=== PATIENT | female | born 1955 | race Caucasian/White ===

== ENCOUNTER 2019-07-15 12:25 | Outpatient (CLI) | payer BC, SELFPAY ==
--- NOTE | 2019-07-15 12:51 | ECHO_ITS ---
Patient Info Name: Vaishali Pittman Age: 63 years : 1955 Gender: Female Ht: 62 in Wt: 130 lbs BSA: 1.62 m2 HR: 77 bpm BP: 120 / 71 mmHg Heart Rhythm: Sinus Rhythm Exam Date: 07/15/2019 12:55 PM Exam Location: [facility] Patient Status: Outpatient Admit Date: 07/15/2019 Staff Ordering Physician: Blake Rivera PA-C Attending Provider: Blake Rivera PA-C Referring Physician: Nicole STEELE; Exam Type: CA echo doppler color flow Study Info Indications R01.1 - Cardiac murmur, unspecified Complete two-dimensional, color flow and Doppler transthoracic echocardiogram is performed. Summary 1. Left ventricular chamber dimension is normal. 2. Left ventricular systolic function is normal, estimated at 65-70%. 3. The left ventricular diastolic function is grade II diastolic dysfunction. 4. E/e' 19 is elevated. 5. There is moderate aortic valve sclerosis. 6. There is mild aortic valve stenosis with a peak velocity of 176 cm/s, mean gradient of 7 mmHg, and aortic valve area of 1.5 cm2. 7. The mitral valve has mildly calcified annulus. 8. There is trace tricuspid valve regurgitation. 9. No pulmonary hypertension, estimated pulmonary arterial systolic pressure is 25 mmHg. Left Ventricle E/e' 19 is elevated. Left ventricular chamber dimension is normal. Left ventricular systolic function is normal, estimated at 65-70%. The left ventricular diastolic function is grade II diastolic dysfunction. Right Ventricle Right ventricular chamber dimension is normal. Right ventricular systolic function is normal. Left Atria Left atrial chamber dimension is normal. Right Atria Right atrial chamber dimension is normal. Aortic Valve The aortic valve is probable trileaflet. There is moderate aortic valve sclerosis. There is mild aortic valve stenosis with a peak velocity of 176 cm/s, mean gradient of 7 mmHg, and aortic valve area of 1.5 cm2. There is no aortic valve regurgitation. Pulmonic Valve There is no pulmonic regurgitation. Mitral Valve The mitral valve has mildly calcified annulus. There is no mitral valve stenosis. There is no mitral valve regurgitation. Tricuspid Valve There is trace tricuspid valve regurgitation. No pulmonary hypertension, estimated pulmonary arterial systolic pressure is 25 mmHg. Pericardium/Pleural There is no pericardial effusion. Inferior Vena Cava Normal inferior vena cava with >50% collapse upon inspiration consistent with normal right atrial pressure, 5 mmHg. Aorta The aortic root size at the sinus of Valsalva is normal. Left Ventricular Outflow Tract Name Value Normal LVOT 2D LVOT Diameter 1.8 cm LVOT Doppler LVOT Peak Gradient 4 mmHg LVOT Mean Gradient 2 mmHg LVOT VTI 23 cm LVOT VTI/AV VTI Ratio 0.6 LVOT Stroke Volume 59 ml LVOT CO 9.8 l/min LVOT CI 6.1 l/min/m2 Pulmonic Valve
== END 2019-07-15 12:26 | disposition home or self-care (01) ==
PROVIDERS: PCP Internal Medicine; Visit Provider Physician Assistant
DX: R01.1 Cardiac murmur, unspecified (principal); R93.1 Abnormal findings on diagnostic imaging of heart and coronary circulation; I70.0 Atherosclerosis of aorta; I35.0 Nonrheumatic aortic (valve) stenosis
CPT/HCPCS: 93306

== ENCOUNTER 2021-07-04 09:17 | Emergency (ER) | payer BC, SELFPAY ==
--- NOTE | ~2021-07-04 | CT_ITS ---
EXAMINATION: CT BRAIN W/O DATE: 07/04/2021 09:45 INDICATION: Status post fall. Trauma to the back of head. TECHNIQUE: Computed tomography (CT) of the head was performed without intravenous contrast. The dose- length product was 605.33 mGy-cm. Automated exposure control and iterative reconstruction technique were employed. COMPARISON: MRI dated 04/07/2014 FINDINGS: Normal brain parenchymal volume for age. Normal bashir-white differentiation. No acute intrac ranial hemorrhage, infarction, mass or mass effect. No ventriculomegaly or midline shift. Midline sagittal images demonstrate a normal corpus callosum, c raniovertebral junction and sella turcica. Basilar cisterns are patent. Paranasal sinuses and mastoids are pneumatized. No depressed skull fractures. IMPRESSION: 1. No acute intracranial abnormality. Reviewed, dictated and finalized at location A. CAL GOODS DRILL OPERATOR
--- NOTE | ~2021-07-04 | XR_ITS ---
XR forearm RT 2V 07/04/2021 09:50 INDICATION: Right forearm PROCEDURE: 2 views right forearm COMPARISON: No prior studies for comparison FINDINGS: Fracture, dislocation or subluxation is not identified. The soft tissues appear within norm al limits. No foreign bodies are identified. IMPRESSION: 1: NO ACUTE BONE OR JOINT ABNORMALITY IDENTIFIED. Reviewed, dictated and finalized at location A. OMER CARE COORDINATOR
--- NOTE | ~2021-07-04 | XR_ITS ---
XR hand RT min 3V, XR wrist RT min 3V 07/04/2021 09:50 Indication: Right wrist and hand pain after fall Procedure: 3 views right hand and 4 views right wrist Comparison: No prior studies for comparison. Findings: Osteopenia. Mild polyarticular osteoarthritis. No acute fracture, subluxation or dislocatio n. No solid focal soft tissue abnormality. No foreign bodies. Impression: 1: No acute fracture. Reviewed, dictated and finalized at location A. ST BOTANY INSTRUCTOR Impression: 1: No acute fracture. Impression: 1: No acute fracture.
[2021-07-04 09:21] VITALS: BP 123/100; PULSE 89; RESP 16; TEMP 36.6; O2SAT 98
--- NOTE | 2021-07-04 09:31 | ED.FALL ---
HPI - Fall General Chief Complaint: Fall <Essie Rae APRN - Last Filed: 07/04/21 18:58> Stated Complaint: fall, wrist injury <Essie Rae APRN - Last Filed: 07/04/21 18:58> Time Seen by Provider: 07/04/21 09:21 <Essie Rae APRN - Last Filed: 07/04/21 18:58> Source: patient <Essie Rae APRN - Last Filed: 07/04/21 18:58> History of Present Illness HPI Narrative: 65 year old female who is right handed presents today with complaints of right arm/wrist pain that started last night when she fell. Patient states she slipped on the ice hit her head but denies LOC. Patient was alert and oriented after the fall and didn't notice any other injuries until a couple hours later. Patient noted the right wrist was with swelling and pain. Patient hand an old brace which she applied and took Tylenol with little relief. <Essie Rae APRN - Last Filed: 07/04/21 18:58> Related Data Home Medications: Home Medications Medication Instructions Recorded Confirmed aspirin 81 mg tablet,delayed 81 mg PO DAILY 06/27/19 01/19/21 release krill 1 cap PO DAILY 06/27/19 01/19/21 vjn-jo-0-bfv-png-evxqovlqhpnhr 300 mg-90 mg-24 mg-50 mg capsule melatonin 5 mg capsule mg PO .hs cap 06/27/19 01/19/21 metformin 500 mg tablet 1,000 mg PO DAILY tablet 06/27/19 01/19/21 multivit with 1 tablet PO DAILY 06/27/19 01/19/21 botjbwrl-vydp-PJ-lutein 8 mg iron-400 mcg-300 mcg tablet rosuvastatin 20 mg tablet 20 mg PO DAILY 06/27/19 01/19/21 empagliflozin 25 mg tablet 25 mg PO QAM tablet 06/28/19 01/19/21 cholecalciferol (vitamin D3) 50 50 mcg PO DAILY 01/15/20 01/19/21 mcg (2,000 unit) capsule magnesium citrate 100 mg tablet 100 mg PO DAILY 01/19/21 01/19/21 semaglutide 1 mg SUB-Q WEEKLY ml 01/19/21 01/19/21 <Essie Rae APRN - Last Filed: 07/04/21 18:58> Allergies/Adverse Reactions: Allergies Allergy/AdvReac Type Severity Reaction Status Date / Time Sulfa (Sulfonamide Allergy Severe Anaphylaxis Verified 07/04/21 09:30 Antibiotics) sulfamethizole Allergy Severe Anaphylaxis Verified 07/04/21 09:30 sulfanilamide Allergy Severe Anaphylaxis Verified 07/04/21 09:30 trimethoprim Allergy Severe Anaphylaxis Verified 07/04/21 09:30 <Essie Rae MEDICAL RECORDS CODER - Last Filed: 07/04/21 18:58> Review of Systems Constitutional: Constitutional: Reports as per HPI and Reports no additional constitutional complaints <Essie Rae MEDICAL RECORDS CODER - Last Filed: 07/04/21 18:58> Eyes: Eyes: Reports no additional eye complaints <Essie Rae MEDICAL RECORDS CODER - Last Filed: 07/04/21 18:58> ENT: Reports system reviewed and no additional complaints, except as documented <Essie Rae APRN - Last Filed: 07/04/21 18:58> Cardiovascular: Cardiovascular: Reports no additional cardiovascular complaints <Essie Rae MEDICAL RECORDS CODER - Last Filed: 07/04/21 18:58> Respiratory: Respiratory: Reports no additional respiratory complaints <Essie Rae MEDICAL RECORDS CODER - Last Filed: 07/04/21 18:58> Musculoskeletal: Musculoskeletal: Reports as per HPI <Essie Rae MEDICAL RECORDS CODER - Last Filed: 07/04/21 18:58> Neurologic: Reports as per HPI, Denies Abnormal speech present, Denies abnormal gait, Denies confusion, Denies dizziness, Denies syncope, Denies headache(s), Denies focal weakness and Reports numbness (numbness noted to right palm near 5th digit. ) <Essie Rae APRN - Last Filed: 07/04/21 18:58> [facility] Past Medical History Medical History: Medical History (Updated 07/04/21 @ 10:32 by Essie Rae APRN) Anxiety Coccygeal pain Heart murmur Hyperlipidemia Hypertension Type 2 diabetes mellitus without complications <Essie Rae APRN - Last Filed: 07/04/21 18:58> Family History Family History: Family History Father Family history of diabetes mellitus in first degree relative Patient's father is <Essie Rae APRN - Last Filed:
[2021-07-04 09:53] VITALS: BP 119/59; PULSE 81; RESP 16; O2SAT 98
[2021-07-04] MEDS: HYDROcodone/acetaminophen (*CRX) 5-325 MG TABLET 1 TAB PO (10:37)
== END 2021-07-04 10:47 | disposition home or self-care (01) ==
PROVIDERS: Emergency Provider Nurse Practitioner Family; PCP Internal Medicine
DX: S60.211A Contusion of right wrist, initial encounter (principal); E78.5 Hyperlipidemia, unspecified; I10 Essential (primary) hypertension; E11.9 Type 2 diabetes mellitus without complications; Z79.84 Long term (current) use of oral hypoglycemic drugs; Z79.82 Long term (current) use of aspirin; W00.0XXA Fall on same level due to ice and snow, initial encounter
CPT/HCPCS: 70450; 73090; 73110; 73130; 99284; A9270

== ENCOUNTER 2022-03-09 11:43 | Outpatient (CLI) | payer BC, SELFPAY ==
[2022-03-09 12:09] LABS: Appearance Urine Cloudy (Clear); Bilirubin Urine Negative (Negative); Blood Urine 2+ (Negative); Color Urine Yellow (Yellow); Glucose Urine UA 2+ mg/dL (Negative); Ketones Urine Negative (Negative); Leukocyte Esterase Ur 1+ LEU/UL (Negative); Nitrate Urine Negative (Negative); Protein Urine 1+ mg/dL (Negative); Specific Grav Ur 1.015 (1.001-1.035); Urobilinogen Urine 0.2 mg/dL (<2.0)
[2022-03-09 12:21] LABS: Add Urine Microscopic? YES; RBC Urine >75 /hpf (0-2); WBC Urine >75 /hpf
== END 2022-03-09 11:44 | disposition home or self-care (01) ==
LOC: ANHLAB 11:45
PROVIDERS: PCP Internal Medicine; Visit Provider Internal Medicine
DX: R30.0 Dysuria (principal)
CPT/HCPCS: 81001; 87077; 87086; 87186

== ENCOUNTER 2022-10-14 02:01 | Day surgery (SDC) | payer BC, SELFPAY ==
[2022-09-29 08:47] VITALS: BMI 23.5
--- NOTE | 2022-10-13 20:28 | PM.HPGS ---
History of Present Illness History of Present Illness Consent: Risks, benefits, and alternatives have been discussed and questions answered. Patient agrees to proceed with procedure. Chief complaint: neoplasm screening Narrative: Vaishali Pittman is a 66 year old female who is referred for colon cancer screening. Review of Systems Review of Systems: All systems reviewed & are unremarkable except as noted in HPI and below PMFSH Past Medical History Medical History Anxiety Coccygeal pain Heart murmur Hyperlipidemia Hypertension Type 2 diabetes mellitus without complications Family History Family History Father Family history of diabetes mellitus in first degree relative Patient's father is Social History Social History Smoking status: Never smoker Second hand tobacco smoke exposure: No Alcohol intake: current Alcohol use details: rarely Substance use type: does not use Lack of Transportation: No Lack of Food: Never True Current Housing: I Have Housing Concerned About Future Housing: No Difficulty Paying Gas/Electric Bills: No Difficulty Paying for Meds: No Currently Unemployed: No Education: Trade/Vocational Certificate Difficulty w/ Childcare or Family Care: No Living arrangements: with family Spiritual care concerns: No Meds Home Medications and Allergies Home Medications Medication Instructions Recorded Confirmed Type aspirin 81 mg tablet,delayed 81 mg PO DAILY 06/27/19 09/29/22 History release (Adult Low Dose Aspirin) melatonin 5 mg capsule 5 mg PO .hs 06/27/19 09/29/22 History metformin 500 mg tablet 1,000 mg PO DAILY 06/27/19 09/29/22 History multivit with 1 tablet PO DAILY 06/27/19 09/29/22 History xvlkeozg-eysd-KO-lutein 8 mg iron-400 mcg-300 mcg tablet (Centrum Silver Women) empagliflozin 25 mg tablet 25 mg PO QAM 06/28/19 09/29/22 History (Jardiance) cholecalciferol (vitamin D3) 50 50 mcg PO DAILY 01/15/20 09/29/22 History mcg (2,000 unit) capsule hydrochlorothiazide 25 mg tablet 25 mg PO DAILY #90 tabs 01/24/22 09/29/22 Rx losartan 100 mg tablet 100 mg PO DAILY #90 tabs 01/24/22 09/29/22 Rx icosapent ethyl 1 gram capsule 2 g PO BID 02/04/22 09/29/22 History (Vascepa) magnesium glycinate 100 mg tablet 100 mg PO DAILY 02/04/22 09/29/22 History fluconazole 150 mg tablet 150 mg PO DAILY PRN other 09/29/22 09/29/22 History rosuvastatin 40 mg tablet 40 mg PO DAILY 09/29/22 09/29/22 History semaglutide 2 mg/dose (8 mg/3 mL) 2 mg subcut WEEKLY 09/29/22 09/29/22 History subcutaneous pen injector (Ozempic) vitamin E 400 unit tablet 400 unit PO DAILY 09/29/22 09/29/22 History Allergies Allergy/AdvReac Type Severity Reaction Status Date / Time Sulfa (Sulfonamide Allergy Severe Anaphylaxis Verified 09/29/22 08:50 Antibiotics) sulfamethizole Allergy Severe Anaphylaxis Verified 09/29/22 08:50 sulfanilamide Allergy Severe Anaphylaxis Verified 09/29/22 08:50 trimethoprim Allergy Severe Anaphylaxis Verified 09/29/22 08:50 Exam Const: General: alert Orientation/consciousness: patient oriented x3 Resp: Auscultation: clear to auscultation bilaterally Cardio: Rhythm: regular rhythm GI: GI Palp: Yes Soft to palpation and No Tenderness to palpation present (GI) Neuro: General: patient oriented x3 Assessment and Plan Assessment and plan (1) Colon cancer screening: Code(s): Z12.11 - Encounter for screening for malignant neoplasm of colon Status: Acute Assessment and Plan: Colonoscopy with possible biopsy or polypectomy or cautery or injection of substances.
[2022-10-14 09:53] VITALS: BP 121/54; PULSE 78; RESP 18; TEMP 36.3; O2SAT 100; BMI 23.2
[2022-10-14 10:14] LABS: Glucose Point of Care 113 mg/dl (65-105)
[2022-10-14] MEDS: LACTATED RINGERS 1,000 ML 150 ML IV CONT (10:26)
[2022-10-14 12:00] VITALS: BP 88/33; PULSE 88; RESP 18; O2SAT 100
[2022-10-14 12:10] VITALS: BP 117/56; PULSE 83; RESP 18; O2SAT 99
[2022-10-14 12:20] VITALS: BP 114/52; PULSE 77; RESP 18; O2SAT 99
--- NOTE | 2022-10-14 13:25 | WPDANESEPPF ---
Anes - Initial Pre Proc Eval Procedure: Operation Date: 10/14/22 11:30 Proposed Procedures p Screening Colonoscopy - Ron Lamb MD Date/Time: 10/14/22 13:25 Surgeon: Ron Lamb MD Pre Op Diagnosis: neoplasm screening Patient Data Age: 66 Gender: F Height: 1.57 m Weight: 57.7 kg Last Vital Signs Temp 97.4 F L 10/14/22 09:53 Pulse 77 10/14/22 12:20 Resp 18 10/14/22 12:20 BP 114/52 L 10/14/22 12:20 Pulse Ox 99 10/14/22 12:20 O2 Del Method Room Air 10/14/22 12:20 Allergies Allergy/AdvReac Type Severity Reaction Status Date / Time Sulfa (Sulfonamide Allergy Severe Anaphylaxis Verified 09/29/22 08:50 Antibiotics) sulfamethizole Allergy Severe Anaphylaxis Verified 09/29/22 08:50 sulfanilamide Allergy Severe Anaphylaxis Verified 09/29/22 08:50 trimethoprim Allergy Severe Anaphylaxis Verified 09/29/22 08:50 Home Medications Medication Instructions Recorded Confirmed Type aspirin 81 mg tablet,delayed 81 mg PO DAILY 06/27/19 09/29/22 History release (Adult Low Dose Aspirin) melatonin 5 mg capsule 5 mg PO .hs 06/27/19 09/29/22 History metformin 500 mg tablet 1,000 mg PO DAILY 06/27/19 09/29/22 History multivit with 1 tablet PO DAILY 06/27/19 09/29/22 History arnoofzp-myxw-JF-lutein 8 mg iron-400 mcg-300 mcg tablet (Centrum Silver Women) empagliflozin 25 mg tablet 25 mg PO QAM 06/28/19 09/29/22 History (Jardiance) cholecalciferol (vitamin D3) 50 50 mcg PO DAILY 01/15/20 09/29/22 History mcg (2,000 unit) capsule hydrochlorothiazide 25 mg tablet 25 mg PO DAILY #90 tabs 01/24/22 09/29/22 Rx losartan 100 mg tablet 100 mg PO DAILY #90 tabs 01/24/22 09/29/22 Rx icosapent ethyl 1 gram capsule 2 g PO BID 02/04/22 09/29/22 History (Vascepa) magnesium glycinate 100 mg tablet 100 mg PO DAILY 02/04/22 09/29/22 History fluconazole 150 mg tablet 150 mg PO DAILY PRN other 09/29/22 09/29/22 History rosuvastatin 40 mg tablet 40 mg PO DAILY 09/29/22 09/29/22 History semaglutide 2 mg/dose (8 mg/3 mL) 2 mg subcut WEEKLY 09/29/22 09/29/22 History subcutaneous pen injector (Ozempic) vitamin E 400 unit tablet 400 unit PO DAILY 09/29/22 09/29/22 History Laboratory Tests 10/14/22 10:04 POC Capillary Glucose 113 H mg/dl (65-105) Patient hx anesthesia problems: none Family hx anesthesia problems: none Results Review: All pre-operative results and documents have been reviewed as part of the pre-operative evaluation. [facility] Past Medical History Medical History Anxiety Coccygeal pain Heart murmur Hyperlipidemia Hypertension Type 2 diabetes mellitus without complications Family History Family History Father Family history of diabetes mellitus in first degree relative Patient's father is Social History Social History Smoking status: Never smoker Second hand tobacco smoke exposure: No Alcohol intake: current Alcohol use details: rarely Substance use type: does not use Lack of Transportation: No Lack of Food: Never True Current Housing: I Have Housing Concerned About Future Housing: No Difficulty Paying Gas/Electric Bills: No Difficulty Paying for Meds: No Currently Unemployed: No Education: Trade/Vocational Certificate Difficulty w/ Childcare or Family Care: No Living arrangements: with family Spiritual care concerns: No Anes - Eval Final PreProcedure Day of Procedure 10/14/22 13:25 Patient weight: normal Heart: regular rate and rhythm Lungs: clear to auscultation Airway: Mallampati scale class II Neurological: alert and oriented Last oral intake: >/= 8 hours ASA classification: III Emergent: no Anesthetic plan: proceed Anesthesia type and monitoring: general GIVS and standard monitoring Results Review: All pre-operativ
== END 2022-10-14 12:33 | disposition home or self-care (01) ==
PROVIDERS: PCP Internal Medicine; Visit Provider Internal Medicine Gastroenterology
PROC: 0DJD8ZZ Inspection of Lower Intestinal Tract, Via Natural or Artificial Opening Endoscopic (ICD-10-PCS; CPT 45378; principal; 2022-10-14 11:30)
DX: Z12.11 Encounter for screening for malignant neoplasm of colon (principal); I10 Essential (primary) hypertension; E78.5 Hyperlipidemia, unspecified; E11.9 Type 2 diabetes mellitus without complications; F41.9 Anxiety disorder, unspecified; Z79.82 Long term (current) use of aspirin; Z79.84 Long term (current) use of oral hypoglycemic drugs; Z79.899 Other long term (current) drug therapy
CPT/HCPCS: 45378; 82948; J2704; J7120

== ENCOUNTER → 2023-07-18 11:30 | Outpatient (CLI) | payer MEDICARE, OTHER, SELFPAY ==
--- NOTE | ~2023-07-18 | XR_ITS ---
Bilateral Hands Technique: Bilateral PA, oblique, and lateral views, and ball-catcher's view, were obtained. Clinical History: Arthritis Findings: No acute fracture or dislocation is seen. Osseous alignment is anatomic. Joint spaces are p reserved. Soft tissues are unremarkable. Impression: Unremarkable bilateral hand radiographs. Reviewed, dictated and finalized at location . TAL LIBRARIAN Impression: Unremarkable bilateral hand radiographs.
== END ==
PROVIDERS: PCP Plastic Surgery; Visit Provider Physician Assistant
DX: M79.89 Other specified soft tissue disorders (principal)
CPT/HCPCS: 73130

== ENCOUNTER 2023-11-28 09:22 | Outpatient (RCR) | payer MEDICARE, OTHER, SELFPAY ==
[2023-11-28 10:40] VITALS: BMI 27.3
[2023-11-28 15:16] VITALS: BMI 27.3
== END 2024-02-12 10:34 | disposition home or self-care (01) ==
LOC: ANHDMC 09:22
PROVIDERS: PCP Nurse Practitioner Family; Visit Provider Internal Medicine
DX: E11.9 Type 2 diabetes mellitus without complications (principal); Z71.3 Dietary counseling and surveillance
CPT/HCPCS: 97802

== ENCOUNTER → 2024-01-23 12:10 | Outpatient (REF) | payer MEDICARE, OTHER, SELFPAY | LOC: ANHLAB 12:10 | PROVIDERS: PCP Nurse Practitioner Family; Visit Provider Plastic Surgery | DX: D48.5 Neoplasm of uncertain behavior of skin (principal) | CPT/HCPCS: 88305 ==

== ENCOUNTER 2024-03-11 11:43 | Outpatient (CLI) | payer MEDICARE, OTHER, SELFPAY ==
--- NOTE | ~2024-03-11 | US_ITS ---
EXAMINATION: US thyroid DATE: 03/11/2024 12:23 INDICATION: Multinodular goiter. TECHNIQUE: Multiple ultrasound images of the thyroid were obtained. COMPARISON: Ultrasound 04/07/2014 FINDINGS: The right thyroid lobe measures 3.5 x 1.2 x 1.0 cm. The left thyroid lobe measures 2.6 x 1.0 x 1.0 c m. There is normal echotexture and echogenicity throughout the thyroid gland. No discrete nodules id entified. Normal vascular flow is present. IMPRESSION: 1. Normal thyroid. Reviewed, dictated and finalized at location B. IMPRESSION: 1. Normal thyroid.
== END 2024-03-11 11:44 | disposition home or self-care (01) ==
LOC: ANHIMG 11:45
PROVIDERS: PCP Family Medicine; Visit Provider Internal Medicine
DX: E11.9 Type 2 diabetes mellitus without complications (principal)
CPT/HCPCS: 76536

== ENCOUNTER 2024-09-26 14:56 | Outpatient (CLI) | payer MEDICARE, OTHER, SELFPAY ==
--- NOTE | ~2024-09-26 | CT_ITS ---
EXAMINATION: CT abdomen pelvis w con DATE: 09/26/2024 15:47 INDICATION: Intra-abdominal and pelvic swelling. TECHNIQUE: Computed tomography (CT) of the abdomen and pelvis was performed with 100 mL Omnipaque-350 intravenous contrast. Automated exposure control and iterative reconstruction technique were employe d. The dose-length product was 381.59 mGy-cm. COMPARISON: None FINDINGS: Lung bases are clear. Heart size is normal. No pericardial or pleural effusion. Small sliding-type hi atal hernia. 7 mm cyst in the right hepatic lobe. Gallbladder, spleen, pancreas and bilateral adrenal glands are normal. Bilateral nonobstructing nephrolithiasis with nonobstructing 3-4 months stone in an upper pole calyx of the right kidney and 5 mm nonobstructing stone in a lower pole calyx of the le ft kidney. Bowels including the appendix are normal. There is a surgical clip situated between the sp lenic flexure the colon and the inferior surface of the spleen. Bladder is normal. The uterus is not identified and has likely been surgically resected. No free intraperitoneal gas or fluid. No patholog ically enlarged abdominal or pelvic lymphadenopathy. 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 A BB indicating the site of concern is pos itioned along the anterolateral aspect of the left upper quadrant. No ventral hernia or underlying ma sses identified. IMPRESSION: 1. No acute intra-abdominal/pelvic process or evident ventral hernia, mass or other etiology for repo rted focal abdominal swelling. 2. Bilateral nonobstructing nephrolithiasis. 3. Small sliding-type hiatal hernia. Reviewed, dictated and finalized at location A. IMPRESSION: 1. No acute intra-abdominal/pelvic process or evident ventral hernia, mass or o ther etiology for reported focal abdominal swelling. 2. Bilateral nonobstructing nephrolithiasis. 3. Small sliding-type hiatal hernia.
--- OUTSIDE RECORDS SUMMARY | 2024-09-26 15:01 | XMS_ITS | Encounter Summary ---
Author Organization [facility] Address [address] [place] [address] Care Team Providers Care Cylinder Inspector Name Role Phone Asa Dempsey DO Primary Care Provider Encounter Details Date Type Department Care Team (Late st Contact Info) Description 08/28/2024 Results [facility] [address] [place] [address] Felipe Whitt MD [address] [facility] [address] [place] [address] Social History Tobacco Use Types Packs/Day Years Used Date Smoking Tobacco: Never Smokeless Tobacco: Never Alcohol Use Standard Drinks/Week Comments No 0 (1 standard drink = 0.6 oz pur e alcohol) AUDIT-C Answer Date Recorded Q1: How often do you have a drink containing alc ohol? 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
--- OUTSIDE RECORDS SUMMARY | 2024-09-26 15:01 | XMS_ITS | Encounter Summary ---
Author Organization [facility] Healthcare Address [address] [place] [address] Care Team Providers Care Account Manager B2B Name Role Phone Rehan Dewitt MD Primary Care Provider [phone]- [phone] Felipe Whitt MD Primary Care Provider [phone]- [phone] Rehan Dewitt MD Primary Care Provider +- [phone] Nela Duran RN Unavailable Unavailable Asa Dempsey DO Primary Care Provider Encounter Details Date Type Department Care Team (Late st Contact Info) Description 02/21/2020 Telephone [facility] - [facility] [address] [place] [address] Transcribed Order, Provider Social History Tobacco Use Types Packs/Day Years Used Date Smoking Tobacco: Never Alcohol Use Standard Drinks/Week Comments No 0 (1 standard drink = 0.6 oz pur e alcohol) Comments Unknown Sex and Gender Information Value Date Recorded Sex Assigned at Not on file Legal Sex Female 11:59 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 Gender Identity Not on file Sexual Orientation Not on file documented as of this encounter Plan of Treatment Not on file documented as of this encounter Visit Diagnoses Not on filedocumented in this encounter Care Teams Account Manager B2B Relationship Specialty Start Date End Date Rehan Dewitt MD [address] [facility] [address] [place], [place] [id number] PCP - General 11/09/11 04/12/20 Felipe Whitt MD [address] [place] [address] PCP - General Obstetrics and Gynecology 04/13/2009/12 Rehan Dewitt MD [address] [place], [place] [id number] PCP - General Internal Medicine 09/24/20 11/26/23 Asa Dempsey DO [address] [place] [address] PCP - General Family Medicine 11/27/23 Nela Duran, [place] Registered Nurse 03/30/22 03/30/22 documented as of this encounter
--- OUTSIDE RECORDS SUMMARY | 2024-09-26 15:01 | XMS_ITS | Encounter Summary ---
Author Organization [facility] Healthcare Address [address] [place] [address] Care Team Providers Care Medical Cost Consultant Name Role Phone Rehan Dewitt MD Primary Care Provider [phone]- [phone] Asa Dempsey DO Primary Care Provider Encounter Details Date Type Department Care Team (Late st Contact Info) Description 04/25/2022 Telephone [facility] - Imaging [address] [address] Ashley Ramirez, [place] Social History Tobacco Use Types Packs/Day Years Used Date Smoking Tobacco: Never Smokeless Tobacco: Never Alcohol Use Standard Drinks/Week Comments No 0 (1 standard drink = 0.6 oz pur e alcohol) Comments No Sex and Gender Information Value Date Recorded Sex Assigned at Not on file Legal 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
--- OUTSIDE RECORDS SUMMARY | 2024-09-26 15:01 | XMS_ITS | Encounter Summary ---
Author Organization [facility] Address [address] [place] [address] Care Team Providers Care Program Consultant Name Role Phone Unavailable Primary Care Provider Unavailabl e Encounter Details Date Type Department Care Team (Late st Contact Info) Description 11/03/2023 Lab Requisition [facility] - DermPath Lab [address] [facility] [place] [phone] Eriberto Bolanos MD [address] [place] [address] Social History Tobacco Use Types Packs/Day Years Used Date Smoking Tobacco: Never Assessed Comments Unknown Sex and Gender Information Value Date Recorded Sex Assigned at Not on file Legal Sex Female 12:00 PM CDT Gender Identity Not on file Sexual Orientation Not on file documented as of this encounter Plan of Treatment Not on file documented as of this encounter Procedures Procedure Name Priority Date/Time Associated Diagnosis Comments DERMATOPATHOLOGY Routine 11/01/2023 12:0 0 AM CDT documented in this encounter Results * DERMATOPATHOLOGY (11/01/2023 12:00 AM CDT) Case Report Dermatopathology Report Case: [id number] Authorizing Provider: Eriberto Bolanos MD Collected: 11/01/2023 12:00 AM Ordering Location: [facility] Physician [facility] - Received: 11/03/2023 04:39 PM DermPath Lab Pathologist: Liya Boswell MD Specimens: A) - Skin, left upper posterior lateral arm B) - Skin, right upper medial back 12:28 PM CDT DERMATOPATHOLOGY LABORATORY Final Diagnosis Specimen A. 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 The specimen consists of a shave biopsy measuring 9x8x3 mm. Jar 0. Specimen B: Received is one formalin filled container labeled with the patient's name and designated right upper medial back. The specimen consists of a shave biopsy measuring 76w01i1 mm. Jar 0. 12:28 PM T DERMATOPATHOLOGY LABORATORY Microscopic Description Specimen A. SKIN, left upper posterior lateral arm: This exoendophytic lesion shows a central keratotic plug surrounded by a symmetrical proliferation of keratinocytes with abundant eosinophilic cytoplasm. At the sides, there is epithelial lipping . There is a suggestion that the central crater consists of plugged follicular infundibula. Specimen B. SKIN, right upper medial back: The epidermis shows parakeratosis, full thickness disorderly maturation of keratinocytes, mitoses at different levels, and dyskeratotic cells. 12:28 PM T DERMATOPATHOLOGY LABORATORY Disclaimer An external and internal positive and negative controls are appropriate for the histochemical, immunohistochemical and immunofluorescence stain(s) in this case (if any), except where stated explicitly. The performance characteristics of the stain(s) cited in this report were developed and its performance characteristic determined by the Dermatopathology Laboratory at [facility], directed by Dr. Socorro Boswell. These tests need not be, and therefore are not, approved by the [place] Food and Drug Administration. The tests are used for clinical purposes. Billing Codes Specimen Charges Stain Charges 67440 00458 1 1 12:28 PM CDT DERMATOPATHOLOGY LABORATORY Embedded Images 12:28 PM CDT DERMATOPATHOLOGY LABORATORY Pathology/Cytology TISSUE SPECIMEN FROM SKIN / Unknown 11/01/2023 11/03/2023 4:39 PM CDT Miscellaneous samples (specimen) TISSUE SPECIMEN FROM SKIN / Unknown 11/01/2023 11/03/2023 4:39 PM CDT us Eriberto Bolanos MD LAB - PATHOLOGY/CYTOLOGY ORD ERABLES Final Result DERMATOPATHOLOGY LABORATORY [facility] - Department of Dermatology [facility] [address] [place] [address], [address] [phone] documented in this encounter Visit Diagnoses Not on filedocumented in this encounter
--- OUTSIDE RECORDS SUMMARY | 2024-09-26 15:01 | XMS_ITS | Encounter Summary ---
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 [address] [facility] [place] [phone] Eriberto Bolanos MD [address] [place] [address] Social History Tobacco Use Types [...] Priority Date/Time Associated Diagnosis Comments DERMATOPATHOLOGY Routine 01/18/2023 3:33 AM CDT documented in this encounter Results * DERMATOPATHOLOGY (01/18/2023 3:33 AM CDT) Case Report Dermatopathology Report Case: [id number] Authorizing Provider: Eriberto Bolanos MD Collected: 01/18/2023 03:33 AM Ordering Location: [facility] DermPath Lab Received: 01/19/2023 12:12 PM Pathologist: Liya Boswell MD Specimen: Skin, left dorsal hand 3:57 PM CDT DERMATOPATHOLOGY LABORATORY Final Diagnosis Specimen A. SKIN, left dorsal hand: SQUAMOUS CELL CARCINOMA, KERATOACANTHOMA TYPE (C44.629) 3:57 PM CDT DERMATOPATHOLOGY LABORATORY Clinical History R/O KA,SCC 3 3:57 PM CDT DERMATOPATHOLOGY LABORATORY Gross Description Specimen A: Received is one formalin filled container labeled with the patient's name and designated left dorsal hand. The specimen consists of a shave biopsy measuring 75d97j1 mm. Jar 0. 3 3:57 PM CDT DERMATOPATHOLOGY LABORATORY Microscopic Description Specimen A. SKIN, left dorsal hand: Sections show an endo exophytic crateriform lesion with a keratotic plug, formed by confluent follicle-like structures with relatively large keratinocytes and neutrophilic abscesses. 3 3:57 PM CDT DERMATOPATHOLOGY LABORATORY Disclaimer An external and internal positive and negative controls are appropriate for the histochemical, immunohistochemical and immunofluorescence stain(s) in this case (if any), except where stated explicitly. The performance characteristics of the stain(s) cited in this report were developed and its performance characteristic determined by the Dermatopathology Laboratory at [facility], directed by Dr. Socorro Boswell. These tests need not be, and therefore are not, approved by the [place] Food and Drug Administration. The tests are used for clinical purposes. Billing Codes Specimen Charges Stain Charges 42256 1 3 3:57 PM CDT DERMATOPATHOLOGY LABORATORY Embedded Images 3 3:57 PM CDT DERMATOPATHOLOGY LABORATORY Pathology/Cytolo gy TISSUE SPECIMEN FROM SKIN / Unknown 01/18/2023 3:33 AM CDT 01/19/2023 12:12 PM CDT Eriberto Bolanos MD LAB - PATHOLOGY/CYTOLOGY ORD ERABLES Final Result DERMATOPATHOLOGY LABORATORY [facility] - Department of Dermatology [address] [place] [address], [facility] [phone] documented in this encounter Visit Diagnoses Not on filedocumented in this encounter
--- OUTSIDE RECORDS SUMMARY | 2024-09-26 15:01 | XMS_ITS | Referral Summary ---
Author Organization [facility] Address [address] [place] [address] Care Team Providers Care Belt And Link Shop Supervisor Name Role Phone Asa Dempsey Primary Care Provider Encounters Date Type Department Care Team Description 09/16/2024 12:45 PM CDT Office Visit [facility] Diabetes and Endocrinology [facility] [place] [id number] Dylan Blevins MD Type 2 diabetes mellitus with hyperglycemia, with long-term current use of insulin (HCC) (Primary Dx); Hyperlipidemia associated with type 2 diabetes mellitus (HCC); Hypertension associated with diabetes (HCC); Subclinical hypothyroidism 09/09/2024 Orders Only [facility] [id number] [place] [address] [address] [place] [address] Dylan Blevins MD 08/28/2024 Results [facility] Medical Office Building [address] [place] [address] Felipe Whitt MD 08/28/2024 [facility] Breast Risk Subsequent Outreach [facility] Cancer Risk Program [address] [place] [address] [address] [place] [address] Nela Duran RN 08/26/2024 12:28 PM CDT - 08/26/2024 11:59 PM CDT Hospital Encounter [facility] [address] [place] [address] BRCA positive Discharge Disposition: Discharge to home or self care 08/15/2024 Tele[place] [facility] [place] [facility] [address] [address] Shila Duffy LPN 07/22/2024 Telephone [facility] [place] [address] [address] Dylan Blevins MD Med Refill 07/12/2024 Results Follow-Up [facility] [address] [address] Dylan Blevins MD from Last 3 Months Allergies Active Allergy Reactions Criticality Noted Date Comments Sulfa (Sulfonamide Antibiotics) Flushing (skin),Hives,Palpitations,I tching Medium 03/29/2024 Medications aspirin 81 mg enteric coated tablet Take 1 tablet (81 mg total) by mouth daily Active multivitamin capsule Take 1 capsule by mouth daily Active cholecalcifer ol (VITAMIN D-3) 2000 unit capsule Take 1 capsule (2,000 Units total) by mouth daily Active vitamin E (AQUASOL E) 400 unit capsule Take 1 capsule (400 Units total) by mouth daily Active hydroCHLOROth iazide (HYDRODIURIL) 25 mg tablet Take 1 tablet (25 mg total) by mouth daily 023 Active losartan (COZAAR) 100 mg tablet Take 1 tablet (100 mg total) by mouth daily 023 Active BD Eliana 2nd Gen Pen Needle 32 gauge x 5/32 needle USE 1 ONCE DAILY 023 Active rosuvastatin (CRESTOR) 40 mg tablet Take 1 tablet (40 mg total) by mouth daily 023 Active FeroSuL 325 mg (65 mg iron) tablet Take 1 tablet (325 mg total) by mouth daily 024 Active FIASP 100 unit/mL (3 mL) pen for injection INJECT 7 UNITS SUBCUTANEOUSLY DAILY AT DINNER WITH ADJUSTMENTS AT OTHER MEALS NEEDED UP MAX DAILY DOSE OF 50 UNITS Active magnesium glycinate 100 mg tablet Take 1 tablet every day by oral route. Active glimepiride (AMARYL) 4 mg tabletIndicat ions:type 2 diabetes mellitus Take one tablet oral with breakfast and 0.5 tablet with dinner 136 tablet 2 Active Jardiance 25 mg tabletIndicat ions:Type 2 diabetes mellitus with hyperglycemia , with long-term current use of insulin (HCC) Take 1 tablet (25 mg total) by mouth daily 90 tablet 3 2025 Active LANTUS 100 unit/mL (3 mL) pen for injectionIndi cations:Type 2 diabetes mellitus with hyperglycemia , with long-term current use of insulin ([facility]) Inject 20 Units under the skin daily 18 mL 3 2025 Active metFORMIN XR (GLUCOPHAGE XR) 500 mg 24 hr tabletIndicat ions:Type 2 diabetes mellitus with hyperglycemia , with long-term current use of insulin ([facility]) Take 2 tablets (1,000 mg total) by mouth 2 (two) times a day after breakfast and dinner 360 tablet 3 2025 Active Jardiance 25 mg tabletIndicat ions:Type 2 diabetes mellitus with hyperglycemia , with long-term current use of insulin ([facility]) Take 1 tablet (25 mg total) by mouth daily 90 tablet 3 2024 Discontinued(R eorder) LANTUS 100 unit/mL (3 mL) pen for injectionIndi cations:Type 2 diabetes mellitus with hyperglycemia , with long-term current use of insulin ([facility]) Inject 20 Units under the skin daily 18 mL 3 2024 Discontinued(R eorder) metFORMIN XR (GLUCOPHAGE XR) 500 mg 24 hr tabletIndicat ions:Type 2 diabetes mellitus with hyperglycemia , with long-term current use of insulin ([facility]) Take 2 tablets (1,000 mg total) by mouth 2 (two) times a day after breakfast and dinner 360 tablet 3 2024 Discontinued(R eorder) glimepiride (AMARYL) 2 mg tabletIndicat ions:type 2 diabetes mellitus Take 1 tablet (2 mg total) by mouth 2 (two) times a day 180 tablet 1 025 2024 Discontinued Active Problems Problem Noted Date Diagnosed Date Hyperlipidemia associated with type 2 diabetes trevor nunez 06/14/2024 Nonrheumatic aortic valve stenosis 09/19/2019 BRCA1 gene mutation positive in female 6 Overview (04/13/2020): BRCA1 [id number] Patient has 4 sisters with BRCA 1 mutation also. She was diagnosed in 2017. She has a low penetrance BRCA 1 mutation estimated lifetime risk for her 24%. Until age 89. Patient has had tubes and ovaries removed. Patient is in the high-risk breast screening program at [facility] Screening Mammogram Bilateral W Nolan: 11/01/19/Overall Assessment: 2 - Benign BILATERAL BREAST MRI WITH AND WITHOUT CONTRAST on 02/24/2020/BI-RADS Category 1: Negative Type 2 diabetes mellitus 09/28/2013 Overview (08/18/2016): DMII WO CMP UNCNTRLD Pure hypercholesterolemia 09/28/2013 Overview (08/19/2016): PURE HYPERCHOLESTEROLEM Hypertension associated with diabetes 09/28/2013 Overview (08/19/2016): HYPERTENSION NOS Non-toxic multinodular goiter 09/28/2013 Overview (08/19/2016): NONTOX MULTINODUL GOITER Social History Tobacco Use Types Packs/Day Years Used Date Smoking Tobacco: Never Smokeless Tobacco: Never Tobacco Cessation:Counseling Given: Not Answered Alcohol Use Standard Drinks/Week Comments No 0 [...] on file 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 Gender Identity Not on file Sexual Orientation Not on file Last Filed Vital Signs Vital Sign Reading Time Taken Comments Blood Pressure 122/70 09/16/2024 12:40 PM CDT Pulse 88 09/16/2024 12:40 PM CDT Temperature - - Respiratory Rate 15 09/16/2024 12:40 PM CDT Oxygen Saturation 97% 06/17/2024 7:56 AM TODDLER TEACHER Inhaled Oxygen Concentration - - Weight 65.3 kg (144 lb) 09/16/2024 12:40 PM CDT Height 157.5 cm (5' 2 ) 09/16/2024 12:40 PM CDT Body Mass Index 26.34 09/16/2024 12:40 PM CDT Plan of Treatment Not on file Procedures Procedure Name Priority Date/Time Associated Diagnosis Comments POCT HEMOGLOBIN A1C Routine 09/16/2024 1 2:44 PM CDT Type 2 diabetes mellitus with hyperglycemia, with long-term current use of insulin (HCC) POCT GLUCOSE Routine 09/16/2024 12:42 PM CDT Type 2 diabetes mellitus with hyperglycemia, with long-term current use of insulin (HCC) T4, FREE Routine 09/09/2024 8:56 AM CDT THYROID FUNCTION CASCADE Routine 09/09/2024 8:56 AM CDT T3, FREE Routine 09/09/2024 8:56 AM CDT THYROID PEROXIDASE ANTIBODY Routine 09/09/2024 8:56 AM CDT MRI BREAST BILATERAL W WO CONTRAST Schedule Routine, Read Routine (OP Routine) 08/26/2024 1:29 PM CDT BRCA positive T4, FREE Routine 07/01/2024 9:02 AM TODDLER TEACHER CBC WITH AUTO DIFFERENTIAL Routine 07/01/2024 9:02 AM TODDLER TEACHER Type 2 diabetes mellitus with hyperglycemia, with long-term current use of insulin (HCC) THYROID FUNCTION CASCADE Routine 07/01/2024 9:02 AM TODDLER TEACHER Type 2 diabetes mellitus with hyperglycemia, with long-term current use of insulin (HCC) LIPID PANEL Routine 07/01/2024 9:02 AM TODDLER TEACHER Type 2 diabetes mellitus with hyperglycemia, with long-term current use of insulin (HCC) Hyperlipidemia associated with type 2 diabetes mellitus (HCC) ALBUMIN CREATININE RATIO, URINE Routine 07/01/2024 9:02 AM TODDLER TEACHER Type 2 diabetes mellitus with hyperglycemia, with long-term current use of insulin (HCC) Hypertension associated with diabetes (HCC) COMPREHENSIVE METABOLIC PANEL Routine 07/01/2024 9:02 AM TODDLER TEACHER Type 2 diabetes mellitus with hyperglycemia, with long-term current use of insulin (HCC) Hypertension associated with diabetes (HCC) Hyperlipidemia associated with type 2 diabetes mellitus (HCC) URINE CULTURE Routine 07/01/2024 9:02 AM TODDLER TEACHER SCREENING MAMMOGRAM BILATERAL W NOLAN Schedule Routine, Read Routine (OP Routine) 01/16/2024 3:31 PM CDT Screening mammogram, encounter for DEXA AXIAL SKELETON BONE DENSITY 1 OR MORE SITES Schedule Routine, Read Routine (OP Routine) 10/17/2022 11:36 AM CDT Osteopenia after menopause from Last 3 Months or Most Recently Relevant to Health Maintenance Results * (ABNORMAL) POCT hemoglobin A1c (09/16/2024 12:44 PM CDT) Hemoglobin A1C, POC 7.5(A) 4.0 - 5.6 % Blood 09/16/2024 12:4 4 PM CDT Dylan Crawford MD POINT OF CARE TEST ORDERABLES Edited Result - Final * POCT glucose (09/16/2024 12:42 PM CDT) Glucose Blood, POC 195 Normal Fasting 70 - 100, Random <200 mg/dL Blood 09/16/2024 12:4 2 PM CDT Dylan Crawford MD POINT OF CARE TEST ORDERABLES Final Result * (ABNORMAL) Thyroid Function [place] (09/09/2024 8:56 AM CDT) TSH 5.09(H) 0.40 - 4.50 mIU/L [facility] 09/09/2024 8:56 AM CDT 09/09/2024 9:58 PM CDT Narrative [facility] - 09/11/2024 11:37 AM CDT FASTING:YES FASTING: YES us Dylan Crawford MD LAB BLOOD ORDERABLE S Final Result [facility] [address] [place] [address] * (ABNORMAL) Thyroid peroxidase antibody (TPO) (09/09/2024 8:56 AM CDT) Thyroperoxidase ab 219(H) <9 IU/mL [facility] 09/09/2024 8:56 AM CDT 09/09/2024 9:58 PM CDT Narrative [facility] - 09/11/2024 11:37 AM CDT FASTING:YES FASTING: YES us Dylan Crawford MD LAB BLOOD ORDERABLE S Final Result [facility] [address] [place] [address] * T3, free (09/09/2024 8:56 AM CDT) Free T3 2.8 2.3 - 4.2 pg/mL [facility] 09/09/2024 8:56 AM CDT 09/09/2024 9:58 PM CDT Narrative [facility] - 09/11/2024 11:37 AM CDT FASTING:YES FASTING: YES us Dylan Crawford MD LAB BLOOD ORDERABLE S Final Result [facility] [address] [place] [address] * T4, free (09/09/2024 8:56 AM CDT) Free T4 1.0 0.8 - 1.8 ng/dL [facility] 09/09/2024 8:56 AM CDT 09/09/2024 9:58 PM CDT Narrative [facility] - 09/11/2024 11:37 AM CDT FASTING:YES FASTING: YES us Dylan Crawford MD LAB BLOOD ORDERABLE S Final Result Performing Organization Address [facility] Co de Phone Number [facility] [address] [place] [address] * MRI Breast Bilateral W WO Contrast (08/26/2024 1:29 PM CDT) Anatomical Region Laterality Modality Breast Bilateral Magnetic Resonan ce 08/28/2024 9:32 AM CDT Impressions 08/28/2024 9:32 AM CDT No MRI features of malignancy in either breast. Overall final assessment: BI-RADS 2: Benign Recommendation: Annual screening mammography in January 2025. Adjunct screening breast MRI can be obtained in one year. Electronically signed by: JOCELYN LAWRENCE M.D. Narrative 08/28/2024 9:32 AM CDT EXAM: MRI BREAST BILATERAL W WO CONTRAST, DATE: 08/26/2024 1:15 PM COMPARISON: 03/28/2023 MRI and 01/16/2024 mammogram INDICATION: Breast cancer screening, high risk (Female >= 18y) TECHNIQUE: Multiplanar, multisequence MRI of the breasts performed with and without gadolinium contrast. 3-D MIP reformatted images obtained. Safello was utilized for the interpretation of the study. 13 mL of gadoterate meglumine contrast administered for the study. FINDINGS: There is minimal background contrast enhancement. There are scattered areas of fibroglandular density. No enhancing mass or morphologic abnormality in either breast to suggest malignancy. No right or left axillary lymphadenopathy. us Felipe Whitt MD IMG MRI PROCEDURES Final R esult * (ABNORMAL) Thyroid Function [place] (07/01/2024 9:02 AM TODDLER TEACHER) Pathologist [facility] TSH 4.98(H) 0.40 - 4.50 mIU/L [facility] Blood 07/01/2024 9:02 AM TODDLER TEACHER 07/02/2024 6:40 AM TODDLER TEACHER Narrative [facility] - 07/02/2024 11:27 PM TODDLER TEACHER FASTING:YES FASTING: YES Dylan Crawford MD LAB BLOOD ORDERABLE S Final Result [facility] [address] [place] [address] * CBC with auto differential (07/01/2024 9:02 AM TODDLER TEACHER) Pathologist [facility] WBC 6.1 3.8 - 10.8 Thousand/u L [facility] RBC, POC 4.83 3.80 - 5.10 Million/uL [facility] Hgb 13.9 11.7 - 15.5 g/dL [facility] Hct 43.0 35.0 - 45.0 % [facility] MCV 89.0 80.0 - 100.0 fL [facility] MCH 28.8 27.0 - 33.0 pg [facility] MCHC 32.3 32.0 - 36.0 g/dL [facility] Comment: For adults, a slight decrease in the calculated MCHC value (in the range of 30 to 32 g/dL) is most likely not clinically significant; however, it should be interpreted with caution in correlation with other red cell parameters and the patient's clinical condition. Rdw 13.2 11.0 - 15.0 % [facility] Platelets 228 140 - 400 Thousand/u L [facility] MPV 10.8 7.5 - 12.5 fL [facility] Neutrophils, abs 3,337 1,500 - 7,800 cells/uL [facility] Lymphocytes, abs 2,147 850 - 3,900 cells/uL [facility] Monocyte abs 427 200 - 950 cells/uL [facility] Eosinophils, abs 140 15 - 500 cells/uL [facility] Basophils, abs 49 0 - 200 cells/uL [facility] Neutrophils 54.7 % [facility] Lymphocyte pct 35.2 % [facility] Monocytes 7.0 % [facility] Eosinophils 2.3 % [facility] Basophils 0.8 % [facility] Blood 07/01/2024 9:02 AM TODDLER TEACHER 07/02/2024 6:40 AM TODDLER TEACHER Narrative [facility] - 07/02/2024 11:27 PM TODDLER TEACHER FASTING:YES FASTING: YES us Dylan Crawford MD LAB BLOOD ORDERABLE S Final Result [facility] [address] [place] [address] * (ABNORMAL) Albumin Creatinine Ratio, Urine (07/01/2024 9:02 AM TODDLER TEACHER) Creatinine, ur 66 20 - 275 mg/dL [facility] Microalbumin, ur 4.8 See Note: mg/dL [facility] Comment: Reference Range: Reference Range Not established Microalbumin/creat ratio 73(H) <30 mg/g creat [facility] Comment: The ADA defines abnormalities in albumin excretion as follows: Albuminuria Category Result (mg/g creatinine) Normal to Mildly increased <30 Moderately increased 30-299 Severely increased > OR = 300 The ADA recommends that at least two of three specimens collected within a 3-6 month period be abnormal before considering a patient to be within a diagnostic category. Urine 07/01/2024 9:02 AM TODDLER TEACHER 07/02/2024 6:40 AM TODDLER TEACHER Narrative [facility] - 07/02/2024 11:27 PM TODDLER TEACHER FASTING:YES FASTING: YES us Dylan Crawford MD LAB URINE ORDERABLE S Final Result Performing Organization Address [facility] Co de Phone Number [facility] [address] [place] [address] * Urine culture (07/01/2024 9:02 AM TODDLER TEACHER) Urine culture [facility] Comment: CULTURE, URINE, ROUTINE Micro Number: [id number] Test Status: Final Specimen Source: Urine Specimen Quality: Adequate Result: Mixed genital christian isolated. These superficial bacteria are not indicative of a urinary tract infection. No further organism identification is warranted on this specimen. If clinically indicated, recollect clean-catch, mid-stream urine and transfer immediately to Urine Culture Transport Tube. We received a preserved urine culture transport tube with either no order indicated or a source which is inappropriate for the test requested. A urine culture was performed. If this is not what you intended to order, please contact your local client director immediately so that we can adjust our billing appropriately. You may also inquire about alternative or additional testing. 07/01/2024 9:02 AM TODDLER TEACHER 07/02/2024 6:40 AM TODDLER TEACHER Narrative [facility] - 07/02/2024 11:27 PM TODDLER TEACHER FASTING:YES FASTING: YES us Dylan Crawford MD LAB MICROBIOLOGY - GENERAL ORDERABLES Final Result Performing Organization Address [facility] Co de Phone Number [facility] [address] [place] [address] * T4, free (07/01/2024 9:02 AM TODDLER TEACHER) Free T4 1.1 0.8 - 1.8 ng/dL [facility] 07/01/2024 9:02 AM TODDLER TEACHER 07/02/2024 6:40 AM TODDLER TEACHER Narrative [facility] - 07/02/2024 11:27 PM TODDLER TEACHER FASTING:YES FASTING: YES us Dylan Crawford MD LAB BLOOD ORDERABLE S Final Result Performing Organization Address [facility] Co de Phone Number [facility] [address] [place] [address] * (ABNORMAL) Lipid panel (07/01/2024 9:02 AM TODDLER TEACHER) Cholesterol 188 <200 mg/dL [facility] HDL 57 > OR = 50 mg/dL [facility] Triglycerides 195(H) <150 mg/dL [facility] LDL 100(H) mg/dL (calc) [facility] Comment: Reference range: <100 Desirable range <100 mg/dL for primary prevention; <70 mg/dL for patients with CHD or diabetic patients with > or = 2 CHD risk factors. LDL-C is now calculated using the Marcia calculation, which is a validated novel method providing better accuracy than the Friedewald equation in the estimation of LDL-C. Baron FLOYD et al. JENNY. 2013;310(19): 4081-2787 (http://education.[employer]/faq/YIH219) Chol/HDL ratio 3.3 <5.0 (calc) [facility] Non-HDL, (LDL+VLDL) 131(H) <130 mg/dL (calc) [facility] Comment: For patients with diabetes plus 1 major ASCVD risk factor, treating to a non-HDL-C goal of <100 mg/dL (LDL-C of <70 mg/dL) is considered a therapeutic option. Blood 07/01/2024 9:02 AM TODDLER TEACHER 07/02/2024 6:40 AM TODDLER TEACHER Narrative [facility] - 07/02/2024 11:27 PM TODDLER TEACHER FASTING:YES FASTING: YES us Dylan Crawford MD LAB BLOOD ORDERABLE S Final Result [facility] [address] [address] * (ABNORMAL) Comprehensive metabolic panel (07/01/2024 9:02 AM TODDLER TEACHER) Glucose 144(H) 65 - 99 mg/dL [facility] Comment: Fasting reference interval For someone without known diabetes, a glucose value >125 mg/dL indicates that they may have diabetes and this should be confirmed with a follow-up test. BUN 15 7 - 25 mg/dL [facility] Creatinine 0.63 0.50 - 1.05 mg/dL [facility] eGFR 98 > OR = 60 mL/min/1.7 3m2 [facility] BUN/creat ratio SEE NOTE: 6 - 22 (calc) [facility] Comment: Not Reported: BUN and Creatinine are within reference range. Sodium 143 135 - 146 mmol/L [facility] Potassium, pl 4.4 3.5 - 5.3 mmol/L [facility] Chloride 103 98 - 110 mmol/L [facility] CO2 29 20 - 32 mmol/L [facility] Calcium 9.0 8.6 - 10.4 mg/dL [facility] Protein, sr 6.8 6.1 - 8.1 g/dL [facility] Albumin 4.4 3.6 - 5.1 g/dL [facility] GLOBULIN 2.4 1.9 - 3.7 g/dL (calc) [facility] Alb/glob ratio 1.8 1.0 - 2.5 (calc) [facility] Bilirubin, total 0.5 0.2 - 1.2 mg/dL [facility] Alk phos 61 37 - 153 U/L [facility] AST 18 10 - 35 U/L [facility] ALT (SGPT) 21 6 - 29 U/L [facility] Blood 07/01/2024 9:02 AM TODDLER TEACHER 07/02/2024 6:40 AM TODDLER TEACHER Narrative [facility] - 07/02/2024 11:27 PM TODDLER TEACHER FASTING:YES FASTING: YES us Dylan Crawford MD LAB BLOOD ORDERABLE S Final Result [facility] [address] [place] [address] * Screening Mammogram Bilateral W Nolan (01/16/2024 3:31 PM CDT) Anatomical Region Laterality Modality Breast Bilateral Mammography Narrative 01/16/2024 3:49 PM CDT Examination: Screening Mammogram Bilateral W Nolan: 01/16/24 Clinical: Screening mammogram, encounter for. Prior Study Comparisons: Comparison was made to the prior available relevant studies at the time of interpretation. Findings: Screening Mammogram Bilateral W Nolan Bilateral No significant masses, malignant type calcifications, skin thickening, nipple retraction, or significant lymphadenopathy is noted in either breast. Computer Aided Detection was utilized for the interpretation of this study. There are scattered areas of fibroglandular density. The patient will be notified of results by letter. Impression: BI-RADS ATLAS category (overall): 1 - Negative Overall Assessment: 1 - Negative Recommendation: - Routine Screening Mammogram in 1 Yr for both breasts. us Self Screening Mammogram IMG MAMMO PROCEDURES Fi nal Result * Dexa Axial Skeleton Bone Density 1 or 2 Site (10/18/19 [id number]|2024-09-26 15:01:00|2024-09-26 15:01:00|XMS_ITS|BKG DAEMON|External Medical Summaries|[id number]|" Clinical Summary Created on: September 26, 2024 PittmanVaishali : 1955 Sex: Female Author Organization [facility] Address [address] [place] [address] Care Team Providers Care Belt And Link Shop Supervisor Name Role Phone Asa Dempsey DO Primary Care Provider Allergies Active Allergy Reactions Criticality Noted Date Comments Sulfa (Sulfonamide Antibiotics) Flushing (skin),Hives,Palpitations,I tching Medium 03/29/2024 Medications aspirin 81 mg enteric coated tablet Take 1 tablet (81 mg total) by mouth daily Active multivitamin capsule Take 1 capsule by mouth daily Active cholecalcifer ol (VITAMIN D-3) 2000 unit capsule Take 1 capsule (2,000 Units total) by mouth daily Active vitamin E (AQUASOL E) 400 unit capsule Take 1 capsule (400 Units total) by mouth daily Active hydroCHLOROth iazide (HYDRODIURIL) 25 mg tablet Take 1 tablet (25 mg total) by mouth daily 023 Active losartan (COZAAR) 100 mg tablet Take 1 tablet (100 mg total) by mouth daily 023 Active BD Eliana 2nd Gen Pen Needle 32 gauge x 5/32 needle USE 1 ONCE DAILY 023 Active rosuvastatin (CRESTOR) 40 mg tablet Take 1 tablet (40 mg total) by mouth daily 023 Active FeroSuL 325 mg (65 mg iron) tablet Take 1 tablet (325 mg total) by mouth daily 024 Active FIASP 100 unit/mL (3 mL) pen for injection INJECT 7 UNITS SUBCUTANEOUSLY DAILY AT DINNER WITH ADJUSTMENTS AT OTHER MEALS NEEDED UP MAX DAILY DOSE OF 50 UNITS Active magnesium glycinate 100 mg tablet Take 1 tablet every day by oral route. Active glimepiride (AMARYL) 4 mg tabletIndicat ions:type 2 diabetes mellitus Take one tablet oral with breakfast and 0.5 tablet with dinner 136 tablet 2 Active Jardiance 25 mg tabletIndicat ions:Type 2 diabetes mellitus with hyperglycemia , with long-term current use of insulin (HCC) Take 1 tablet (25 mg total) by mouth daily 90 tablet 3 2025 Active LANTUS 100 unit/mL (3 mL) pen for injectionIndi cations:Type 2 diabetes mellitus with hyperglycemia , with long-term current use of insulin (HCC) Inject 20 Units under the skin daily 18 mL 3 2025 Active metFORMIN XR (GLUCOPHAGE XR) 500 mg 24 hr tabletIndicat ions:Type 2 diabetes mellitus with hyperglycemia , with long-term current use of insulin ([facility]) Take 2 tablets (1,000 mg total) by mouth 2 (two) times a day after breakfast and dinner 360 tablet 3 025 2025 Active Jardiance 25 mg tabletIndicat ions:Type 2 diabetes mellitus with hyperglycemia , with long-term current use of insulin ([facility]) Take 1 tablet (25 mg total) by mouth daily 90 tablet 3 025 2024 Discontinued(R eorder) LANTUS 100 unit/mL (3 mL) pen for injectionIndi cations:Type 2 diabetes mellitus with hyperglycemia , with long-term current use of insulin ([facility]) Inject 20 Units under the skin daily 18 mL 3 025 2024 Discontinued(R eorder) metFORMIN XR (GLUCOPHAGE XR) 500 mg 24 hr tabletIndicat ions:Type 2 diabetes mellitus with hyperglycemia , with long-term current use of insulin ([facility]) Take 2 tablets (1,000 mg total) by mouth 2 (two) times a day after breakfast and dinner 360 tablet 3 025 2024 Discontinued(R eorder) glimepiride (AMARYL) 2 mg tabletIndicat ions:type 2 diabetes mellitus Take 1 tablet (2 mg total) by mouth 2 (two) times a day 180 tablet 1 025 2024 Discontinued Active Problems Problem Noted Date Diagnosed Date Hyperlipidemia associated with type 2 diabetes m ellitus 06/14/2024 Nonrheumatic aortic valve stenosis 09/19/2019 BRCA1 gene mutation positive in female 6 Overview (04/13/2020): BRCA1 [id number] Patient has 4 sisters with BRCA 1 mutation also. She was diagnosed in 2017. She has a low penetrance BRCA 1 mutation estimated lifetime risk for her 24%. Until age 89. Patient has had tubes and ovaries removed. Patient is in the high-risk breast screening program at [facility] Screening Mammogram Bilateral W Nolan: 11/01/19/Overall Assessment: 2 - Benign BILATERAL BREAST MRI WITH AND WITHOUT CONTRAST on 02/24/2020/BI-RADS Category 1: Negative Type 2 diabetes mellitus 09/28/2013 Overview (08/18/2016): DMII WO CMP UNCNTRLD Pure hypercholesterolemia 09/28/2013 Overview (08/19/2016): PURE HYPERCHOLESTEROLEM Hypertension associated with diabetes 09/28/2013 Overview (08/19/2016): HYPERTENSION NOS Non-toxic multinodular goiter 09/28/2013 Overview (08/19/2016): NONTOX MULTINODUL GOITER Encounters Date Type Department Care Team Description 09/16/2024 12:45 PM CDT Office Visit [facility] Diabetes and Endocrinology [address] [place] [phone] Dylan Blevins MD Type 2 diabetes mellitus with hyperglycemia, with long-term current use of insulin (HCC) (Primary Dx); Hyperlipidemia associated with type 2 diabetes mellitus (HCC); Hypertension associated with diabetes (HCC); Subclinical hypothyroidism 09/09/2024 Orders Only [facility] [address] [place] [address] Dylan Blevins MD 08/28/2024 Results [facility] [address] [place] [address] Medical Office Building [address] [place] [phone] Felipe Whitt MD 08/28/2024 [facility] Breast Risk Subsequent Outreach [facility] Cancer Risk Program [address] [place] [address] Nela Duran RN 08/26/2024 12:28 PM CDT - 08/26/2024 11:59 PM CDT Hospital Encounter [facility] [address] [place] [id number] BRCA positive Discharge Disposition: Discharge to home or self care 08/15/2024 Telephone [facility] [address] [address] Shila Duffy LPN 07/22/2024 Telephone [facility] [address] [address] Dylan Blevins MD Med Refill 07/12/2024 Results Follow-Up [facility] [address] [address] Dylan Blevins MD from Last 3 Months Surgical History Surgery Date Site/Laterality Comments HYSTERECTOMY JORGE LUIS, BSO SECTION SKIN CANCER EXCISION back and left upper forearm TRIGGER FINGER RELEASE Right middle finger Medical History Medical History Date Comments Type 2 diabetes mellitus (HCC) D iabetes type 2 Heart murmur Hypertension Hypercholesterolemia H/O: hysterectomy Osteopenia BRCA1 positive Family History Medical History Relation Name Comments Diabetes Father Ovarian cancer Maternal Grandmother Osteoporosis Mother Stroke Mother Sudden Cardiac Mother Pancreatic cancer Mother's Sister Diabetes type II Other Family hist ory of Diabetes -Type 2; Breast cancer Sister BRCA + Pulmonary embolism Sister Thrombosis Sister Relation Name Status Comments Father pneumonia Maternal Grandmother Mother Mother's Sister Other Sister Alive Social History Tobacco Use Types Packs/Day Years Used Date Smoking Tobacco: Never Smokeless Tobacco: Never Tobacco Cessation:Counseling Given: Not Answered Alcohol Use Standard Drinks/Week Comments No 0 [...] on file 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 Gender Identity Not on file Sexual Orientation Not on file Obstetrics History Para Term AB IAB SAB Ectopic Multiple Livin g Live Births 2 2 2 Date Outcome GA Total Labor Labor/2nd/3rd Weight Sex Type Anes PTL Zehra A1 A5 Name Clin 1978 Term Vaginal 1984 Term C-Sectio n Last Filed Vital Signs Vital Sign Reading Time Taken Comments Blood Pressure 122/70 09/16/2024 12:40 PM CDT Pulse 88 09/16/2024 12:40 PM CDT Temperature - - Respiratory Rate 15 09/16/2024 12:40 PM CDT Oxygen Saturation 97% 06/17/2024 7:56 AM TODDLER TEACHER Inhaled Oxygen Concentration - - Weight 65.3 kg (144 lb) 09/16/2024 12:40 PM CDT Height 157.5 cm (5' 2 ) 09/16/2024 12:40 PM CDT Body Mass Index 26.34 09/16/2024 12:40 PM CDT Plan of Treatment Health Maintenance Due Date Last Done Comments Colon Cancer Screening-Colonoscopy 1957 Depression Screening 1957 Fall Risk Assessment 1957 Hepatitis C Screening 1955 Dilated Eye Exam 1957 Foot Exam 1957 Covid-19 Vaccine (2023-2 5 season) 2024 02/11/2023, 01/31/2022, 10/09/2021, Additional history exists Osteoporosis Screening-Bone Density Scan 10/17/2024 10/17/2022 Breast Cancer Screening-Mammogram 01/15/2025 01/16/2024, 10/17/2022, 11/11/2021, Additional history exists Hemoglobin A1C 03/19/2025 09/16/2024, 05/17, 02/21/2024 Well Visit 65+ 03/29/2025 03/29/2024, 03/28/2023 Albumin Creatinine Ratio, Urine 07/01/2025 Lipid Panel 07/01/2025 07/01/2024, 02/0 07/2024, 06/08/2023, Additional history exists eGFR 07/01/2025 07/01/2024 DTaP/Tdap/Td Vaccine (3 - Td or Tdap) 09/03/2033 09/04/2023, 04/26/2016 Hepatitis B Screening Completed 01/14/2014 , 06/21/2013, 04/19/2013 Zoster Vaccine Completed 07/11/2020, 02/26/2020 Pneumococcal vaccine 65+ Completed 02/01/2023, 02/12 Influenza Vaccine Completed 04/06/2024, 04/04/2006 Procedures Procedure Name Priority Date/Time Associated Diagnosis Comments POCT HEMOGLOBIN A1C Routine 09/16/2024 1 2:44 PM CDT Type 2 diabetes mellitus with hyperglycemia, with long-term current use of insulin (HCC) POCT GLUCOSE Routine 09/16/2024 12:42 PM CDT Type 2 diabetes mellitus with hyperglycemia, with long-term current use of insulin (HCC) T4, FREE Routine 09/09/2024 8:56 AM CDT THYROID FUNCTION CASCADE Routine 09/09/2024 8:56 AM CDT T3, FREE Routine 09/09/2024 8:56 AM CDT THYROID PEROXIDASE ANTIBODY Routine 09/09/2024 8:56 AM CDT MRI BREAST BILATERAL W WO CONTRAST Schedule Routine, Read Routine (OP Routine) 08/26/2024 1:29 PM CDT BRCA positive T4, FREE Routine 07/01/2024 9:02 AM TODDLER TEACHER CBC WITH AUTO DIFFERENTIAL Routine 07/01/2024 9:02 AM TODDLER TEACHER Type 2 diabetes mellitus with hyperglycemia, with long-term current use of insulin (HCC) THYROID FUNCTION CASCADE Routine 07/01/2024 9:02 AM TODDLER TEACHER Type 2 diabetes mellitus with hyperglycemia, with long-term current use of insulin (HCC) LIPID PANEL Routine 07/01/2024 9:02 AM TODDLER TEACHER Type 2 diabetes mellitus with hyperglycemia, with long-term current use of insulin (HCC) Hyperlipidemia associated with type 2 diabetes mellitus (HCC) ALBUMIN CREATININE RATIO, URINE Routine 07/01/2024 9:02 AM TODDLER TEACHER Type 2 diabetes mellitus with hyperglycemia, with long-term current use of insulin (HCC) Hypertension associated with diabetes (HCC) COMPREHENSIVE METABOLIC PANEL Routine 07/01/2024 9:02 AM TODDLER TEACHER Type 2 diabetes mellitus with hyperglycemia, with long-term current use of insulin (HCC) Hypertension associated with diabetes (HCC) Hyperlipidemia associated with type 2 diabetes mellitus (HCC) URINE CULTURE Routine 07/01/2024 9:02 AM TODDLER TEACHER SCREENING MAMMOGRAM BILATERAL W NOLAN Schedule Routine, Read Routine (OP Routine) 01/16/2024 3:31 PM CDT Screening mammogram, encounter for DEXA AXIAL SKELETON BONE DENSITY 1 OR MORE SITES Schedule Routine, Read Routine (OP Routine) 10/17/2022 11:36 AM CDT Osteopenia after menopause from Last 3 Months or Most Recently Relevant to Health Maintenance Results * (ABNORMAL) POCT hemoglobin A1c (09/16/2024 12:44 PM CDT) Hemoglobin A1C, POC 7.5(A) 4.0 - 5.6 % Blood 09/16/2024 12:4 4 PM CDT Dylan Crawford MD POINT OF CARE TEST ORDERABLES Edited Result - Final * POCT glucose (09/16/2024 12:42 PM CDT) Pathologist [facility] Glucose Blood, POC 195 Normal Fasting 70 - 100, Random <200 mg/dL Blood 09/16/2024 12:4 2 PM CDT Dylan Crawford MD POINT OF CARE TEST ORDERABLES Final Result * (ABNORMAL) Thyroid Function [place] (09/09/2024 8:56 AM CDT) TSH 5.09(H) 0.40 - 4.50 mIU/L [facility] 09/09/2024 8:56 AM CDT 09/09/2024 9:58 PM CDT Narrative [facility] - 09/11/2024 11:37 AM CDT FASTING:YES FASTING: YES us Dylan Crawford MD LAB BLOOD ORDERABLE S Final Result Performing Organization Address [facility]/ZIP Co de Phone Number [facility] [address] [place] [phone] * (ABNORMAL) Thyroid peroxidase antibody (TPO) (09/09/2024 8:56 AM CDT) Thyroperoxidase ab 219(H) <9 IU/mL [facility] 09/09/2024 8:56 AM CDT 09/09/2024 9:58 PM CDT Narrative [facility] - 09/11/2024 11:37 AM CDT FASTING:YES FASTING: YES Dylan Crawford MD LAB BLOOD ORDERABLE S Final Result Performing Organization Address [facility] Co de Phone Number [facility] [address] [place] [address] * T3, free (09/09/2024 8:56 AM CDT) Free T3 2.8 2.3 - 4.2 pg/mL [facility] 09/09/2024 8:56 AM CDT 09/09/2024 9:58 PM CDT Narrative [facility] - 09/11/2024 11:37 AM CDT FASTING:YES FASTING: YES us Dylna Crawford MD LAB BLOOD ORDERABLE S Final Result [facility] [address] [place] [address] * T4, free (09/09/2024 8:56 AM CDT) Free T4 1.0 0.8 - 1.8 ng/dL [facility] 09/09/2024 8:56 AM CDT 09/09/2024 9:58 PM CDT Narrative [facility] - 09/11/2024 11:37 AM CDT FASTING:YES FASTING: YES Dylan Crawford MD LAB BLOOD ORDERABLE S Final Result [facility] [address] [place] [address] * MRI Breast Bilateral W WO Contrast (08/26/2024 1:29 PM CDT) Anatomical Region Laterality Modality Breast Bilateral Magnetic Resonan ce 08/28/2024 9:32 AM CDT Impressions 08/28/2024 9:32 AM CDT No MRI features of malignancy in either breast. Overall final assessment: BI-RADS 2: Benign Recommendation: Annual screening mammography in January 2025. Adjunct screening breast MRI can be obtained in one year. Electronically signed by: JOCELYN LAWRENCE M.D. Narrative 08/28/2024 9:32 AM CDT EXAM: MRI BREAST BILATERAL W WO CONTRAST, DATE: 08/26/2024 1:15 PM COMPARISON: 03/28/2023 MRI and 01/16/2024 mammogram INDICATION: Breast cancer screening, high risk (Female >= 18y) TECHNIQUE: Multiplanar, multisequence MRI of the breasts performed with and without gadolinium contrast. 3-D MIP reformatted images obtained. POLYBONAd was utilized for the interpretation of the study. 13 mL of gadoterate meglumine contrast administered for the study. FINDINGS: There is minimal background contrast enhancement. There are scattered areas of fibroglandular density. No enhancing mass or morphologic abnormality in either breast to suggest malignancy. No right or left axillary lymphadenopathy. Felipe Whitt MD IMG MRI PROCEDURES Final R esult * (ABNORMAL) Thyroid Function [place] (07/01/2024 9:02 AM TODDLER TEACHER) TSH 4.98(H) 0.40 - 4.50 mIU/L [facility] Blood 07/01/2024 9:02 AM TODDLER TEACHER 07/02/2024 6:40 AM TODDLER TEACHER Narrative [facility] - 07/02/2024 11:27 PM TODDLER TEACHER FASTING:YES FASTING: YES us Dylan Crawford MD LAB BLOOD ORDERABLE S Final Result [facility] [address] [place] [phone] * CBC with auto differential (07/01/2024 9:02 AM TODDLER TEACHER) WBC 6.1 3.8 - 10.8 Thousand/u L [facility] RBC, POC 4.83 3.80 - 5.10 Million/uL [facility] Hgb 13.9 11.7 - 15.5 g/dL [facility] Hct 43.0 35.0 - 45.0 % [facility] MCV 89.0 80.0 - 100.0 fL [facility] MCH 28.8 27.0 - 33.0 pg [facility] MCHC 32.3 32.0 - 36.0 g/dL [facility] Comment: For adults, a slight decrease in the calculated MCHC value (in the range of 30 to 32 g/dL) is most likely not clinically significant; however, it should be interpreted with caution in correlation with other red cell parameters and the patient's clinical condition. Rdw 13.2 11.0 - 15.0 % [facility] Platelets 228 140 - 400 Thousand/u L [facility] MPV 10.8 7.5 - 12.5 fL [facility] Neutrophils, abs 3,337 1,500 - 7,800 cells/uL [facility] Lymphocytes, abs 2,147 850 - 3,900 cells/uL [facility] Monocyte abs 427 200 - 950 cells/uL [facility] Eosinophils, abs 140 15 - 500 cells/uL [facility] Basophils, abs 49 0 - 200 cells/uL [facility] Neutrophils 54.7 % [facility] Lymphocyte pct 35.2 % [facility] Monocytes 7.0 % [facility] Eosinophils 2.3 % [facility] Basophils 0.8 % [facility] Blood 07/01/2024 9:02 AM TODDLER TEACHER 07/02/2024 6:40 AM TODDLER TEACHER Narrative [facility] - 07/02/2024 11:27 PM TODDLER TEACHER FASTING:YES FASTING: YES Dylan Crawford MD LAB BLOOD ORDERABLE S Final Result Performing Organization Address City/[facility] Co de Phone Number [facility] [address] [place] [address] * (ABNORMAL) Albumin Creatinine Ratio, Urine (07/01/2024 9:02 AM TODDLER TEACHER) Creatinine, ur 66 20 - 275 mg/dL [facility] Microalbumin, ur 4.8 See Note: mg/dL [facility] Comment: Reference Range: Reference Range Not established Microalbumin/creat ratio 73(H) <30 mg/g creat [facility] Comment: The ADA defines abnormalities in albumin excretion as follows: Albuminuria Category Result (mg/g creatinine) Normal to Mildly increased <30 Moderately increased 30-299 Severely increased > OR = 300 The ADA recommends that at least two of three specimens collected within a 3-6 month period be abnormal before considering a patient to be within a diagnostic category. Urine 07/01/2024 9:02 AM TODDLER TEACHER 07/02/2024 6:40 AM TODDLER TEACHER Narrative [facility] - 07/02/2024 11:27 PM TODDLER TEACHER FASTING:YES FASTING: YES Dylan Crawford MD LAB URINE ORDERABLE S Final Result Performing Organization Address [facility] Co de Phone Number [facility] [address] [place] [address] * Urine culture (07/01/2024 9:02 AM TODDLER TEACHER) Urine culture [facility] Comment: CULTURE, URINE, ROUTINE Micro Number: [id number] Test Status: Final Specimen Source: Urine Specimen Quality: Adequate Result: Mixed genital christian isolated. These superficial bacteria are not indicative of a urinary tract infection. No further organism identification is warranted on this specimen. If clinically indicated, recollect clean-catch, mid-stream urine and transfer immediately to Urine Culture Transport Tube. We received a preserved urine culture transport tube with either no order indicated or a source which is inappropriate for the test requested. A urine culture was performed. If this is not what you intended to order, please contact your local client director immediately so that we can adjust our billing appropriately. You may also inquire about alternative or additional testing. 07/01/2024 9:02 AM TODDLER TEACHER 07/02/2024 6:40 AM TODDLER TEACHER Narrative [facility] - 07/02/2024 11:27 PM TODDLER TEACHER FASTING:YES FASTING: YES Dylan Crawford MD LAB MICROBIOLOGY - GENERAL ORDERABLES Final Result Performing Organization Address [facility] de Phone Number [facility] [address] [place] [address] * T4, free (07/01/2024 9:02 AM TODDLER TEACHER) Pathologist [facility] Free T4 1.1 0.8 - 1.8 ng/dL [facility] 07/01/2024 9:02 AM TODDLER TEACHER 07/02/2024 6:40 AM TODDLER TEACHER Narrative [facility] - 07/02/2024 11:27 PM TODDLER TEACHER FASTING:YES FASTING: YES Dylan Crawford MD LAB BLOOD ORDERABLE S Final Result Performing Organization Address [facility] Co de Phone Number [facility] [address] [place] [address] * (ABNORMAL) Lipid panel (07/01/2024 9:02 AM TODDLER TEACHER) Cholesterol 188 <200 mg/dL [facility] HDL 57 > OR = 50 mg/dL [facility] Triglycerides 195(H) <150 mg/dL [facility] LDL 100(H) mg/dL (calc) [facility] Comment: Reference range: <100 Desirable range <100 mg/dL for primary prevention; <70 mg/dL for patients with CHD or diabetic patients with > or = 2 CHD risk factors. LDL-C is now calculated using the Marcia calculation, which is a validated novel method providing better accuracy than the Friedewald equation in the estimation of LDL-C. Baron FLOYD et al. JENNY. 2013;310(19): 5733-1957 (http://education.[employer]/faq/JQI970) Chol/HDL ratio 3.3 <5.0 (calc) [facility] Non-HDL, (LDL+VLDL) 131(H) <130 mg/dL (calc) [facility] Comment: For patients with diabetes plus 1 major ASCVD risk factor, treating to a non-HDL-C goal of <100 mg/dL (LDL-C of <70 mg/dL) is considered a therapeutic option. Blood 07/01/2024 9:02 AM TODDLER TEACHER 07/02/2024 6:40 AM TODDLER TEACHER Narrative [facility] - 07/02/2024 11:27 PM TODDLER TEACHER FASTING:YES FASTING: YES us Dylan Crawford MD LAB BLOOD ORDERABLE S Final Result [facility] [address] [facility] [place] [address] * (ABNORMAL) Comprehensive metabolic panel (07/01/2024 9:02 AM TODDLER TEACHER) Glucose 144(H) 65 - 99 mg/dL [facility] Comment: Fasting reference interval For someone without known diabetes, a glucose value >125 mg/dL indicates that they may have diabetes and this should be confirmed with a follow-up test. BUN 15 7 - 25 mg/dL [facility] Creatinine 0.63 0.50 - 1.05 mg/dL [facility] eGFR 98 > OR = 60 mL/min/1.7 3m2 [facility] BUN/creat ratio SEE NOTE: 6 - 22 (calc) [facility] Comment: Not Reported: BUN and Creatinine are within reference range. Sodium 143 135 - 146 mmol/L [facility] Potassium, pl 4.4 3.5 - 5.3 mmol/L
--- OUTSIDE RECORDS SUMMARY | 2024-09-26 15:01 | XMS_ITS | Clinical Summary ---
Author Organization [facility] Address [facility] [place] [address] Care Team Providers Care Documentation Analyst Name Role Phone Terry Miller MD Primary Care Provider [phone] Social History Tobacco Use Types Packs/Day Years Used Date Smoking Tobacco: Never Assessed Comments Unknown Sex and Gender Information Value Date Recorded Sex Assigned at Not on file Legal Sex Female 7:42 PM CDT Gender Identity Not on file Sexual Orientation Not on file Plan of Treatment Health Maintenance Due Date Last Done Comments Colorectal Cancer Screening Colonoscopy (10 Years) 1957 Hepatitis C 10/23/1975 Mammogram Screening 1997 Annual Medicare Wellness Visit 2022 COVID-19 Vaccine ( season) 2024 02/11/2023, 01/31/2022, 10/09/2021, Additional history exists DTaP, Tdap and Td Vaccines (3 - Td or Tdap) 09/03/2033 09/04/2023, 04/26/2016 Zoster Vaccines Completed 07/11/2020, 02/26/2020 Dexa Scan (General) Completed 10/17/2022 Pneumococcal Vaccine: 50+ Years Completed 02/01/2023, 02/26/2020 RSV Immunization or 60+ Years Completed 02/28/2023 Meningococcal B Vaccine Aged Out No l onger eligible based on patient's age to complete this topic Meningococcal Vaccine Aged Out No marko albino eligible based on patient's age to complete this topic RSV Immunizations Under 20 Months Aged Out No longer eligible based on patient's age to complete this topic Insurance [facility]ICARE [facility] Care Teams Documentation Analyst Relationship Specialty Start Date End Date Terry Miller MD [facility] [place] [address] PCP - General FAMILY PRACTICE 10/18/23
--- OUTSIDE RECORDS SUMMARY | 2024-09-26 15:01 | XMS_ITS | Clinical Summary ---
Author Organization [facility] [employer] Address [address] [place] [address] Care Team Providers Care Operating Room Manager Name Role Phone Unavailable Primary Care Provider Unavailabl e Source Comments [facility] [employer],non-owned Affiliates and Associated Physician Practices is amultiple site organization consisting of ambulatory clinics and hospital sitesin [place], [place], [place] and [place]. This disclosure is being madepursuant to the Care Everywhere program and may not contain all information available regarding this patient. Last updated 18.[facility] [employer] Social History Tobacco Use Types Packs/Day Years Used Date Smoking Tobacco: Never Assessed Comments Unknown Sex and Gender Information Value Date Recorded Sex Assigned at Not on file Legal Sex Female 12:00 PM CDT Gender Identity Not on file Sexual Orientation Not on file Plan of Treatment Health Maintenance Due Date Last Done Comments BONE DENSITY TESTING 1955 COLOGUARD (AGES 45-75) - COL ON CA SCREENING 1957 COLON MONITORING 1957 COLONOSCOPY - COLON CA SCREENING 1957 CT COLONOGRAPHY - COLON CA SCREENING 1955 Colorectal Cancer Screening 1957 FIT - COLON CA SCREENING 1957 FLEX SIG - COLON CA SCREENING 1957 LIPID TESTING 1957 MAMMOGRAM 1955 MEDICARE AWV 12 MONTHS 1955 HEPATITIS C SCREENING 10/18/1975 DTAP/TDAP/TD VACCINES (1 - Tdap) 1976 PNEUMOCOCCAL VACCINE 50+ (1 of 1 - PCV) 10/23/2007 ZOSTER VACCINE (1 of 2) 10/23/2007 COVID-19 VACCINE ( - 2023-2 5 season) 2024 DEPRESSION SCREENING 05/15/2024 INFLUENZA VACCINE (Season Ended) 2025 Respiratory Syncytial Virus (RSV) Vaccine Pt: or over 60 yrs (1 - 1-dose 75+ series) 2032 HEPATITIS B VACCINE Aged Out No longe r eligible based on patient's age to complete this topic HIB VACCINE Aged Out No longer eligi ble based on patient's age to complete this topic HPV VACCINE Aged Out No longer eligi ble based on patient's age to complete this topic MENINGOCOCCAL (Group B) VACC INE SHARED DECISION-MAKING Aged Out No longer eligibl e based on patient's age to complete this topic MENINGOCOCCAL GROUPS A/C/Y/W VACCINE Aged Out No longer eligible b ased on patient's age to complete this topic Insurance [facility]IC[facility] SELF PAY NO INSURANCE Member Subscriber Plan / Payer (Ef fective for All Dates) Name:Qian Silverman Member ID:Not on file Relation to Subscriber:Not on file Name:QIAN SILVERMAN Subscriber ID:Not on file (Home) Address: [address] [place] [phone] Payer ID:Not on file Group ID:Not on file Type:Self Pay Address: [place], [place]
[2024-09-26 15:25] LABS: Estimated Glomerular Filt Rate > 60
== END 2024-09-26 14:57 | disposition home or self-care (01) ==
PROVIDERS: PCP Nurse Practitioner Family; Visit Provider Nurse Practitioner Family
DX: R19.00 Intra-abdominal and pelvic swelling, mass and lump, unspecified site (principal)
CPT/HCPCS: 74177; Q9967